=== PATIENT | male | born 2000 | race American Indian/Alaskan Native ===

== ENCOUNTER 2020-06-26 08:17 | Day surgery (SDC) | payer MEDICAID ==
[~2020-06-26 08:17] MED LIST: ACETAMINOPHEN 500 MG TAB PO SCH; LACTATED RINGERS 1,000 ML IV SCH; MIDAZOLAM 2 MG/2 ML INJ IV NR; SCOPOLAMINE TRANSDERMAL PATCH 72 HR TD NR
[2020-06-26] MEDS ORDERED: NEOMY 40 MG/POLYMYXIN B 200,000 UNITS/ML (GU) AMPULE IR ONE (08:51)
[2020-06-26] MEDS ORDERED: HYDROmorphone 1 MG/1 ML INJ IV PRN (09:00)
[2020-06-26] MEDS ORDERED: ONDANSETRON 4 MG/2 ML INJ IV PRN (09:00)
[2020-06-26] MEDS ORDERED: HYDROcodone/ACETAMINOPHEN 5-325 MG TAB PO PRN (09:00)
--- NOTE | 2020-06-26 09:00 | Anesthesia Consultation ---
Anesthesia Consult and Med Hx Date of service: 06/26/20 - Airway Anesthetic Teeth Evaluation: Good ROM Head & Neck: Adequate Mental/Hyoid Distance: Adequate Mallampati Class: Class III Intubation Access Assessment: Possibly Difficult - Pre-Operative Health Status ASA Pre-Surgery Classification: ASA1 Proposed Anesthetic Plan: General - Pulmonary Hx Smoking: No Hx Respiratory Symptoms: No - Cardiovascular System Hx Hypertension: No - Central Nervous System CVA: No - Endocrine Hx Renal Disease: No Hx Liver Disease: No Hx Insulin Dependent Diabetes: No Hx Non-Insulin Dependent Diabetes: No Hx Thyroid Disease: No - Other Systems Hx Obesity: Yes (BMI 36) - Additional Comments Anesthesia Medical History Comments: No prior GA. No FHx anesthetic complications. Mom at bedside.
--- NOTE | 2020-06-26 09:00 | Anesthesia Day of Surgery ---
Anesthesia Day of Surgery - Day of Surgery Patient Examined: Yes Patient H&P Reviewed: Yes Patient is NPO: Yes
[2020-06-26] MEDS ORDERED: ONDANSETRON 4 MG/2 ML INJ ONE (09:30)
[2020-06-26] MEDS ORDERED: LIDOCAINE MPF (2%) 20 MG/1 ML VIAL 5 ML ONE (09:38)
[2020-06-26] MEDS ORDERED: propofoL 200 MG/20 ML VIAL IV ONE ×3 (09:39→11:52)
[2020-06-26] MEDS ORDERED: fentaNYL 100 MCG/2 ML INJ ONE ×2 (09:39→10:30)
[2020-06-26] MEDS ORDERED: ceFAZolin/Water 2 GM/20 ML 0 GM/0 ML SYRINGE IV ONE (09:41)
[2020-06-26] MEDS ORDERED: ceFAZolin/STERILE WATER 2 GM/20 ML SYRINGE IV NR (09:41)
[2020-06-26] MEDS ORDERED: ePHEDrine SULFATE 50 MG/1 ML INJ ONE (10:27)
[2020-06-26] MEDS ORDERED: NEOMY 3.5 MG/BACIT 400 UNITS/POLY B 5000 UNITS/GM OINT PACKET TP ONE (10:36)
[2020-06-26] MEDS ORDERED: SODIUM CHLORIDE 0.9% IRR 1,500 ML BOTTLE IR ONE (10:36)
--- NOTE | 2020-06-26 12:23 | Procedure Note ---
Date of procedure: 06/26/20 Pre-op diagnosis: Lacerated right flexor tendons right 3rd digit zone 3 Post-op diagnosis: same Procedure: Repair of lacerated flexor tendons right third finger Procedure Patient was brought to the OR placed in the OR table in supine position following induction intubation anesthesia the patient's right upper extremity was prepped and draped in the usual sterile manner a timeout procedure was done to identify the patient and the correct operative site. The arm was exsanguinated followed by inflation of the pneumatic tourniquet to 250 mmHg. Patient was noted to have a transverse laceration at the distal wrist crease overlying the third digit the laceration was extended distally towards the metacarpal phalangeal joint as well as proximally towards the thenar eminence this was then taken down sharply through skin subcu using retractors the proxi mal and distal extents of her tendons were seen using 18-gauge needle these were used to secure the tendons in place doing the repair process patient was noted to have a nice clean cut there were no signs of infection following this 4-0 nylon sutures were used to repair both the superficialis and profundus tendon this was done using a modified Bermeo stitch care was taken to maintain appropriate tension on the repair the tendon was subsequently repaired using 6-0 nylon in the peritenon tissues following this the finger was then taken through a range of motion the tendons appeared stable next the wound was copiously irrigated and the wound was closed primarily routine postop dressings were applied as well as a clamdigger type splint to prevent the patient from fully extending his third finger. He was taken to postanesthesia recovery in a stable condition Anesthesia: GETA Surgeon: RAHEEM VILLAFUERTE (Sheyla Griggs, 1st assist) Estimated blood loss: minimal Pathology: none Condition: stable Disposition: PACU
--- NOTE | 2020-06-26 15:57 | Post Anesthesia Evaluation ---
- Post Anesthesia Evaluation Patient Participated: Yes Airway Patent: Yes Stable Respiratory Function: Yes Nausea/Vomiting: No Temp > 96.8F: Yes Pain Manageable: Yes Adequeate Hydration: Yes Anesthesia Complications: No
[2020-06-26 16:36] VITALS: BP 124/68
== END 2020-06-26 08:18 | disposition home or self-care (01) ==
LOC: OR 08:17
PROVIDERS: ATTEND Orthopaedic Surgery
DX: S66.122A Laceration of flexor muscle, fascia and tendon of right middle finger at wrist and hand level, initial encounter (principal); E66.9 Obesity, unspecified; Z79.899 Other long term (current) drug therapy; Z68.36 Body mass index [BMI] 36.0-36.9, adult; Z83.3 Family history of diabetes mellitus; X58.XXXA Exposure to other specified factors, initial encounter; Y93.89 Activity, other specified; Y92.89 Other specified places as the place of occurrence of the external cause; Y99.8 Other external cause status
CPT/HCPCS: 26350; A6250; J0690; J2250; J2405; J2704; J3010; J3490; J7120

== ENCOUNTER 2021-04-16 06:17 | Day surgery (SDC) | payer MEDICAID ==
[~2021-04-16 06:17] MED LIST changes: +ACETAMINOPHEN 325 MG/10.15 ML ORAL LIQD UNIT DOSE PO NR; -ACETAMINOPHEN 500 MG TAB PO SCH; -SCOPOLAMINE TRANSDERMAL PATCH 72 HR TD NR
[2021-04-16] MEDS ORDERED: HYDROmorphone 1 MG/1 ML INJ ONE (07:42)
[2021-04-16] MEDS ORDERED: propofoL 200 MG/20 ML VIAL IV ONE (07:42)
[2021-04-16] MEDS ORDERED: LIDOCAINE MPF (2%) 20 MG/1 ML VIAL 5 ML ONE (07:42)
--- NOTE | 2021-04-16 07:55 | Anesthesia Consultation ---
Anesthesia Consult and Med Hx Date of service: 04/16/21 - Airway Anesthetic Teeth Evaluation: Good ROM Head & Neck: Adequate Mental/Hyoid Distance: Adequate Mallampati Class: Class III Intubation Access Assessment: Possibly Difficult (previous LMA 5) - Pre-Operative Health Status ASA Pre-Surgery Classification: ASA2 Proposed Anesthetic Plan: MAC - Pulmonary Hx Smoking: No Hx Respiratory Symptoms: No Hx Sleep Apnea: No (PAXTON PRE SCREEN HIGH RISK) - Cardiovascular System Hx Hypertension: No Hx Heart Attack/AMI: No Hx Percutaneous Transluminal Coronary Angioplasty (PTCA): No - Central Nervous System Hx Neuromuscular Disorder: No (mild developmental delay) CVA: No - Endocrine Hx Renal Disease: No Hx Liver Disease: No Hx Insulin Dependent Diabetes: No Hx Non-Insulin Dependent Diabetes: No Hx Thyroid Disease: No - Other Systems Hx Obesity: Yes (BMI 37) - Additional Comments Anesthesia Medical History Comments: No hx anesthetic complications.
[2021-04-16] MEDS ORDERED: HYDROcodone/ACETAMINOPHEN 5-325 MG TAB PO PRN (07:57)
[2021-04-16] MEDS ORDERED: HYDROmorphone 1 MG/1 ML INJ IV PRN (07:57)
[2021-04-16] MEDS ORDERED: ONDANSETRON 4 MG/2 ML INJ IV PRN (07:57)
--- NOTE | 2021-04-16 07:57 | Anesthesia Day of Surgery ---
Anesthesia Day of Surgery - Day of Surgery Patient Examined: Yes Patient H&P Reviewed: Yes Patient is NPO: Yes
[2021-04-16 10:40] VITALS: BP 137/79
== END 2021-04-16 06:18 | disposition home or self-care (01) ==
LOC: OR 06:17
PROVIDERS: ATTEND Orthopaedic Surgery
DX: M25.642 Stiffness of left hand, not elsewhere classified (principal); Z53.8 Procedure and treatment not carried out for other reasons; E66.9 Obesity, unspecified; Z68.37 Body mass index [BMI] 37.0-37.9, adult; Z98.890 Other specified postprocedural states
CPT/HCPCS: J1170; J7120; J3490; J2704

== ENCOUNTER 2021-09-30 10:04 | Outpatient (CLI) | payer MEDICAID ==
--- NOTE | 2021-09-30 12:36 | XRay Report ---
LEFT HAND 3 VIEW(S) INDICATION / CLINICAL INFORMATION: S66.123 LACERATION OF FLEXOR MUSCLE OF LT MIDDLE FINGER COMPARISON: None available. FINDINGS: BONES / JOINT(S): No acute fracture or subluxation. No significant arthritis. Persistent flexion of t he third proximal interphalangeal joint, which may be secondary to a flexor tendon injury. Correlatio n with clinical exam recommended, and follow-up MRI may be warranted. SOFT TISSUES: No significant abnormality. ADDITIONAL FINDINGS: Round metallic density, likely a BB, within the soft tissues of the hand between the second and third metacarpals. This is likely chronic without associated subcutaneous gas, but cl inical correlation for timing of injury is recommended. IMPRESSION: 1. Persistent flexion of the third proximal interphalangeal joint, which may be secondary to a flexor tendon injury. Correlation with clinical exam recommended, and follow-up MRI may be warranted. Signer Name: Emanuel Lovelace MD Signed: 09/30/2021 12:32 PM Workstation Name: [email or web address]
--- NOTE | 2021-09-30 12:36 | XRay Report ---
RIGHT KNEE 4 VIEW(S) INDICATION / CLINICAL INFORMATION: M25.649 STIFFNESS OF UNSPECIFIED HAND COMPARISON: None available. FINDINGS: BONES / JOINT(S): No acute fracture or subluxation. No significant arthritis. Calcifications within t he region of the distal patellar tendon, likely secondary to enthesopathy. Chronic Rc-Schlatter d isease and/or remote patellar tendon injury are also included in the differential diagnosis. SOFT TISSUES: No significant abnormality. ADDITIONAL FINDINGS: None. IMPRESSION: 1. No acute findings. 2. Calcifications within the region of the distal patellar tendon, likely secondary to enthesopathy. Chronic Wink-Schlatter disease and/or remote patellar tendon injury are also included in the differ ential diagnosis. Signer Name: Emanuel Lovelace MD Signed: 09/30/2021 12:31 PM Workstation Name: [id number]
== END 2021-09-30 10:05 | disposition home or self-care (01) ==
LOC: XRAY 10:04
PROVIDERS: ATTEND Orthopaedic Surgery
DX: S66.123A Laceration of flexor muscle, fascia and tendon of left middle finger at wrist and hand level, initial encounter (principal); M25.649 Stiffness of unspecified hand, not elsewhere classified; X58.XXXA Exposure to other specified factors, initial encounter; Y93.89 Activity, other specified; Y92.89 Other specified places as the place of occurrence of the external cause; Y99.8 Other external cause status